=== PATIENT | female | born 1990 | race Hispanic/Latino ===

== ENCOUNTER 2018-04-27 05:20 | Inpatient (IN) | payer OTHER, MEDICAID ==
[2018-04-27] MEDS ORDERED: BRETHINE SUB-Q PRN (05:43)
[2018-04-27] MEDS ORDERED: XYLOCAINE 2% INFILTRATI ONE (05:43)
[2018-04-27] MEDS ORDERED: BRETHINE IVP PRN (05:43)
[2018-04-27] MEDS ORDERED: STADOL IV PRN (05:43)
[2018-04-27] MEDS ORDERED: ePHEDrine SULFATE IV PRN ×2 (05:43→09:09)
[2018-04-27] MEDS ORDERED: MINERAL OIL PO PRN ×2 (05:43→22:00)
[2018-04-27] MEDS: LACTATED RINGERS 1,000 ML IV SCH ×2 (06:37→07:08)
[2018-04-27 06:47] LABS: Hematocrit 34.7 % (30.3-42.9); Hemoglobin 11.9 gm/dl (10.1-14.3); Mean Corpuscular HGB Conc 34 % (30-34); Mean Corpuscular Hemoglobin 29 pg (28-32); Mean Corpuscular Volume 84 fl (79-97); Platelet Count 163 K/mm3 (140-440); Red Blood Count 4.13 M/mm3 (3.65-5.03); Red Cell Distribution Width 14.8 % (13.2-15.2)
[2018-04-27] MEDS ORDERED: SUBLIMAZE ONE (07:37)
[2018-04-27] MEDS ORDERED: SUBLIMAZE IV ONE (08:00)
--- NOTE | 2018-04-27 09:02 | History and Physical Report ---
History of Present Illness Date of examination: 04/27/18 Date of admission: 04/27/18 05:53 Chief complaint: Intense Labor Pains History of present illness: Late entry to care at 36 6/7 weeks, Incarerated at [facility] on 04/04/2018. course complicated by a hx of illict drug use. +Trichomonas treated on . Past History Past Medical History: other (Bipolar) Past Surgical History: no surgical history Family/Genetic History: diabetes, hypertension Social history: single, smoking (THC), other (hx of Meth and Heroin Use; states she stopped use 3 months ago) - Obstetrical History Expected Date of Delivery: 04/27/18 Actual Gestation: 40 Week(s) 0 Day(s) : 3 Para: 2 Hx # Term Pregnancies: 1 Number of Pregnancies: 1 Number of Living Children: 2 #1 Gender: Female year: 2[birth year] Birthweight: 4.309 kg Method of Delivery: Vaginal Gestational age at delivery: 40 #2 Gender: Male year: 2,[birth year] Birthweight: 2.722 kg Method of Delivery: Vaginal Gestational age at delivery: 36 Medications and Allergies Allergies Allergy/AdvReac Type Severity Reaction Status Date / Time No Known Allergies Allergy Verified 02/21/15 03:13 Home Medications Medication Instructions Recorded Confirmed Last Taken Type Ibuprofen [Motrin 800 MG tab] 800 mg PO Q8H PRN #30 tablet 02/21/15 01/01/16 18:00 Rx 800 mg methOCARBAMOL [Robaxin] 500 mg PO BID #10 tab 02/21/15 01/01/16 Unknown Rx traMADol [Ultram] 50 mg PO Q6HR PRN #14 tablet 02/21/15 01/01/16 Unknown Rx Ondansetron [Zofran TAB] 4 mg PO Q8HR PRN 01/01/16 01/01/16 11/06/15 18:00 History 4 mg Ferrous Sulfate [Feosol 325 MG tab] 325 mg PO BID #60 tablet 01/05/16 Unknown Rx Ibuprofen [Motrin] 800 mg PO Q8HR PRN #30 tablet 01/05/16 Unknown Rx Vit-Fe Fumar-FA [ 1 tab PO DAILY #30 tablet 01/05/16 Unknown Rx Vitamin] Active Meds: Active Medications Butorphanol Tartrate (Stadol) 2 mg IV Q2H PRN PRN Reason: Pain , Severe (7-10) Ephedrine Sulfate (Ephedrine Sulfate) 10 mg IV Q2M PRN PRN Reason: Hypotension Lactated Ringer's (Lactated Ringers) 1,000 mls @ 125 mls/hr IV DIRECT CARMEN Last Admin: 04/27/18 07:08 Dose: 125 mls/hr Oxytocin/Sodium Chloride (Pitocin/Ns 20 Unit/1000ml Drip) 20 units in 1,000 mls @ 125 mls/hr IV DIRECT CARMEN Mineral Oil (Mineral Oil) 30 ml PO QHS PRN PRN Reason: Constipation Terbutaline Sulfate (Brethine) 0.25 mg SUB-Q ONCE PRN PRN Reason: Hyperstimulation/Hypertonicity Terbutaline Sulfate (Brethine) 0.25 mg IVP ONCE PRN PRN Reason: Hyperstimulation/Hypertonicity Review of Systems All systems: negative - Vital Signs Vital signs: Vital Signs Temp Resp 98.3 F 20 04/27/18 05:28 04/27/18 05:28 Temp Pulse Resp BP Pulse Ox 97.9 F 93 H 18 100/56 97 04/27/18 08:00 04/27/18 08:59 04/27/18 06:32 04/27/18 07:39 04/27/18 08:59 - Physical Exam Breasts: Positive: normal, mass Lungs: Positive: Clear to auscultation Abdomen: Positive: normal appearance, soft, normal bowel sounds Genitourinary (Female): Positive: normal external genitalia, normal perenium Vagina: Positive: normal moisture Uterus: Positive: enlarged - Obstetrical FHR: category 1 Uterine Contraction Monitor Mode: External Cervical Dilatation: 7 (AROM of a moderate amout of clear fluid at 0819) Cervical Effacement Percentage: 100 station: 0 Uterine Contraction Pattern: Regular Uterine Tone Measurement Phase: Resting Uterine Contraction Intensity: Moderate Results Result Diagrams: 04/27/18 06:07 Abnormal lab results 04/27/18 Range/Units 06:07 WBC 13.5 H (4.5-11.0) K/mm3 All other labs normal. Assessment and Plan A: IUP @ 40 Weeks Category I Tracing Active Labor GBS negative [employer] [facility] P: Admit to L&D per Routine Orders AROM Epidural Anesthesia
[2018-04-27] MEDS ORDERED: NARCAN 2 MG/2 ML IV PRN (09:09)
--- NOTE | 2018-04-27 09:09 | Anesthesia Consultation ---
Anesthesia Consult and Med Hx Date of service: 04/27/18 - Airway Anesthetic Teeth Evaluation: Poor ROM Head & Neck: Adequate Mental/Hyoid Distance: Adequate Mallampati Class: Class II Intubation Access Assessment: Probably Good - Pre-Operative Health Status ASA Pre-Surgery Classification: ASA2 Proposed Anesthetic Plan: Epidural, Spinal - Pulmonary Hx Smoking: Yes Hx Asthma: No COPD: No Hx Pneumonia: No - Cardiovascular System Hx Hypertension: No - Central Nervous System Hx Seizures: No Hx Psychiatric Problems: Yes (ADHD- no meds last used 8 yrs ago) - Endocrine Hx Renal Disease: No Hx End Stage Renal Disease: No Hx Hypothyroidism: No Hx Hyperthyroidism: No - Hematic Hx Anemia: No Hx Sickle Cell Disease: No - Other Systems Hx Alcohol Use: No Hx Substance Use: Yes (h/o marijuana, metamphetamines, heroin) Hx Obesity: Yes
[2018-04-27] MEDS ORDERED: ZOFRAN IV PRN (09:34)
[2018-04-27] MEDS ORDERED: PITOCin/NS 30 UNIT/500ML 30 UNITS/500 ML BAG IV SCH (10:00)
[2018-04-27] MEDS ORDERED: fentaNYL-BUPIV 2 MCG/ML-0.125% 200 MCG/100 ML BAG EPIDURAL SCH (10:00)
[2018-04-27] MEDS ORDERED: LACTATED RINGERS 1,000 ML IV SCH (10:00)
--- NOTE | 2018-04-27 12:06 | Procedure Note ---
OB Delivery Note - Delivery Date of Delivery: 04/27/18 (1117) Surgeon: DONNA JOVEL Estimated blood loss: 200cc - Vaginal Delivery presentation: vertex Delivery position: OA Intrapartum events: none Delivery induction: none Delivery augmentation: rupture of membranes, pitocin Delivery monitor: external FHT, external uterine Route of delivery: Delivery placenta: spontaneous Delivery cord: nuchal cord, 3 umbilical vessels Episiotomy: none Delivery laceration: none Anesthesia: epidural Delivery comments: of a 7'0 male over a intact perineum under epidural anesthesia with Apgars of 7 and 8 at 1117 on 04/27/2018. Tight nuchal cord x 1 manually reduced with delivery of body. directly to maternal abd/chest, skin to skin contact. NICU team called to room to evaluate infant after cyanosis observed around eyes and mouth. Spontaneous delivery of placenta complete and intact with [place] side presenting at 1122. Fundus is firm and midline located 5 below the U. Lochia is scant. Cord blood collected; Placenta to pathology. Mother and baby both stable; Mother . - Infant A at 1 minute: 7 at 5 minutes: 8 Gender: Male (7'0)
[2018-04-27] MEDS: PITOCin/NS 20 UNIT/1000ML DRIP 20 UNITS/1,000 ML BAG IV SCH ×2 (12:35→13:03)
[2018-04-27] MEDS ORDERED: PHENERGAN PO PRN (16:42)
[2018-04-27] MEDS ORDERED: TUCKS PAD TP PRN (16:42)
[2018-04-27] MEDS ORDERED: NORCO 5/325 PO PRN (16:42)
[2018-04-27] MEDS: MOTRIN PO SCH (17:00)
[2018-04-27] MEDS ORDERED: SODIUM CHLORIDE FLUSH SYRINGE 10 ML IV NR (17:00)
[2018-04-28 05:53] LABS: Hematocrit 30.5 % (30.3-42.9); Hemoglobin 10.4 gm/dl (10.1-14.3)
--- NOTE | 2018-04-28 11:03 | Progress Note ---
Assessment and Plan A: PP Day #1 Stable P: Follow Routine Orders D/c to [facility] today Subjective - Subjective Date of service: 04/28/18 Interval history: Late entry to care at 36 6/7 weeks, Incarerated at [facility] on 04/04/2018. course complicated by a hx of illict drug use. +Trichomonas treated on . Patient reports: appetite normal, voiding normally, pain well controlled, flatus , ambulating normally [place]: doing well, bottle feeding Objective - Vital Signs Latest vital signs: Vital Signs Temp Pulse Resp BP BP Pulse Ox 04/28/18 07:25 98.3 F 77 20 106/67 97 04/28/18 01:13 98.1 F 81 20 113/52 04/27/18 23:00 18 04/27/18 22:00 16 04/27/18 21:02 98.5 F 93 H 18 111/60 04/27/18 15:00 98.2 F 04/27/18 14:45 98 F 100 H 18 131/73 100 04/27/18 12:59 98.6 F 04/27/18 12:33 90 113/56 04/27/18 12:19 85 115/58 04/27/18 11:55 97 H 100 04/27/18 11:53 90 108/62 04/27/18 11:50 89 99 04/27/18 11:19 84 99/60 100 04/27/18 11:14 77 98 04/27/18 11:09 78 98 Intake and Output 04/27/18 04/28/18 04/28/18 22:59 06:59 14:59 Intake Total 240 Output Total 600 Balance -360 Intake: Intake, Free Water 240 Output: Urine 600 Void 600 Other: Total, Output Amount 600 # Voids Void 1 - Exam Breasts: Present: normal Cardiovascular: Present: Regular rate Lungs: Present: Clear to auscultation, Normal air movement Abdomen: Present: normal appearance, soft, normal bowel sounds Uterus: Present: normal, firm, fundal height below umbilicus Extremities: Present: normal
--- NOTE | 2018-04-28 11:06 | Discharge Summary ---
Providers - Providers Date of Admission: 04/27/18 05:53 Date of discharge: 04/28/18 Attending physician: JAVI WEEKS MD Primary care physician: JAVI WEEKS MD Hospitalization Reason for admission: active labor Delivery: Episiotomy: none Laceration: none Other procedures: none complications: none Discharge diagnosis: IUP at term delivered [place] baby: male Condition at discharge: Good Disposition: DC-01 TO HOME OR SELFCARE Plan - Provider Discharge Summary Activity: routine, no sex for 6 weeks, no heavy lifting 4 weeks, no strenuous exercise Diet: routine Instructions: routine Additional instructions: [] Smoking cessation referral if applicable(refer to patient education folder for contact #) [] Refer to [facility]'s [facility] Booklet Call your doctor immediately for: * Fever > 100.5 * Heavy vaginal bleeding ( >1 pad per hour) * Severe persistent headache * Shortness of breath * Reddened, hot, painful area to leg or breast * Drainage or odor from incision. * Keep incision clean and dry at all times and follow doctor's instructions regarding bathing/showering - Follow up plan Follow up: JAVI WEEKS MD [Primary Care Provider] - 6 Weeks
[2018-04-28] MEDS: MOTRIN PO SCH ×2 (11:12)
[2018-04-28 18:35] VITALS: BP 125/81
== END 2018-04-28 17:25 | DRG 775 ==
LOC: TRG 05:20 → EEVIPCON 05:20 → TRG 05:36 → LD 05:53 → TRG 05:53 → LD 06:03 → OB 15:07
PROVIDERS: ADMIT Obstetrics & Gynecology; ATTEND Obstetrics & Gynecology
PROC: 10E0XZZ Delivery of Products of Conception, External Approach (ICD-10-PCS; principal; 2018-04-27)
PROC: 3E0R3BZ Introduction of Anesthetic Agent into Spinal Canal, Percutaneous Approach (ICD-10-PCS; 2018-04-27)
PROC: 00HU33Z Insertion of Infusion Device into Spinal Canal, Percutaneous Approach (ICD-10-PCS; 2018-04-27)
DX: O69.1XX0 Labor and delivery complicated by cord around neck, with compression, not applicable or unspecified (principal); O99.344 Other mental disorders complicating childbirth; Z3A.40 40 weeks gestation of pregnancy; Z37.0 Single live birth; F31.9 Bipolar disorder, unspecified; Z87.891 Personal history of nicotine dependence
CPT/HCPCS: 36415; 85014; 85018; 85027; 86592; 86850; 86900; 86901; 88307; J2590; J3010; J7120

== ENCOUNTER 2019-04-23 19:18 | Outpatient (CLI) | payer MEDICAID ==
[2019-04-23 21:33] VITALS: BP 122/68
--- NOTE | 2019-04-23 21:43 | Ultrasound Report ---
OB ultrasound Biophysical profile Ultrasound HISTORY: decrease movement. TECHNIQUE: Grayscale and color Doppler imaging performed. COMPARISON: None FINDINGS: There is a single intrauterine gestation which is cephalic in presentation. measureme nt was not performed. The placenta is positioned posteriorly and the placenta was graded as a grade 3 . JULES is 10 cm. heart rate was 135 bpm. The fetus received a score of 2 for breathing movement, movement, posture, and qual itative amniotic fluid volume. Total score was 8 out of 8. IMPRESSION: Limited OB ultrasound as outlined above with normal biophysical profile. Signer Name: Boubacar Reyes MD Signed: 04/23/2019 9:39 PM Workstation Name: [id number]
== END 2019-04-23 21:41 | disposition home or self-care (01) ==
LOC: TRG 19:18 → EEVIPCON 19:18 → TRG 19:20
PROVIDERS: ATTEND Obstetrics & Gynecology
DX: O47.1 False labor at or after 37 completed weeks of gestation (principal); Z3A.39 39 weeks gestation of pregnancy
CPT/HCPCS: 59025; 76815; 76819